=== PATIENT | female | born 1970 | race Caucasian/White ===

== ENCOUNTER 2021-10-05 13:16 | Outpatient (CLI) | payer OTHER, SELFPAY ==
[2021-10-05 13:55] LABS: Anion Gap 8 mmol/L (8-16); Blood Urea Nitrogen 14 mg/dL (7-17); Calcium 9.2 mg/dL (8.4-10.2); Carbon Dioxide 25 mmol/L (22-30); Chloride 103 mmol/L (98-107); Estimated Glomerular Filt Rate > 60; Glucose 270 mg/dL (65-110); Potassium 3.8 mmol/L (3.4-5.0); Sodium 136 mmol/L (137-145)
== END 2021-10-05 13:17 | disposition home or self-care (01) ==
LOC: ANHSURGERY 13:24
PROVIDERS: Anesthesiology; Visit Provider Obstetrics & Gynecology
DX: Z01.812 Encounter for preprocedural laboratory examination (principal); E11.9 Type 2 diabetes mellitus without complications
CPT/HCPCS: 36415; 80048

== ENCOUNTER 2021-10-11 00:36 | Day surgery (SDC) | payer OTHER, SELFPAY ==
[2021-10-03 16:19] VITALS: BMI 38.5
--- NOTE | 2021-10-03 16:49 | PC.NURSE ---
Report to the Outpatient Waiting Room, entrance under the green pavilion located off [facility], at time 1100 on date 10/11/21. OR Time: 1300. - You and your visitor will be asked a series of questions to screen for COVID 19 for your protection. - A mask is required within the hospital. - Only one visitor is allowed at this time. Patient visitors will be guided where to wait when not with patient. Preoperative COVID Testing Requirements: No COVID Test needed if: (proof is required; if not received patient will have Rapid Test prior to entry) - Patient has received COVID Vaccine at least 14 days prior to procedure date or - Patient has positive COVID test result within last 90 days of surgery date. COVID Test needed if above criteria is not met If not COVID vaccinated a COVID test must be conducted within 72 hours of surgery and patient is asked to isolate self from time of testing until procedure. You will go to the [facility] for your COVID testing. The [facility] is located at the corner of [address] [facility]. You will only be called if COVID results are positive and your surgeon may reschedule your elective surgery date. Patients may have clear liquids (water, carbonated beverages, clear teas, apple juice) until 3 hours prior to surgery with a maximum of 20 ounces. - No food from midnight until time of surgery - Infants may have breast milk until 4 hours before surgery, infant formula 6 hours prior to surgery. - Children will be allowed to drink immediately following surgery. If applicable, please bring a bottle or sippy cup to assist with drinking. Juice, water, soda, and popsicles are readily available. For infants on formula, please bring formula the day of surgery. Pacifiers are allowed. Take the following medications with a SIP of water the morning of surgery: amlodipine, citalopram Medications to discontinue per physician vitamin D3 Date to take last dose 10/08/21 Please no make-up, nail cymro, hairspray, perfume, deodorant, or body powder the day of surgery. No jewelry (including any body piercings) or valuables the day of surgery, leave them at home. Please take a shower or bath the night before, or the morning of, surgery with an antibacterial soap. Wear comfortable, loose fitting clothing. Children are encouraged to wear pajamas. - Jewelry must be removed prior to entering the operating room. Rings and piercings that are not removed may be cut off. - The hospital will not accept responsibility for valuables. - Please leave all valuables, including medications, at home the day of surgery. If you are going home after surgery, a licensed driver recruiter must drive you home. - NO public transportation without another adult. - We recommend that an adult stay with you for 24 hours following discharge. - We also recommend that you do not drive, make important decision, drink alcoholic beverages, or take any drugs that were not prescribed by your health care provider for at least 24 hours after your discharge time. For Pediatric surgeries, we recommend two adults accompany the child home (only one inside the building at this time). Follow any additional instructions given to you from your surgeon. Telephone instructions given to Luna Fitch and asked if any additional questions and then verbalized understanding. Patient advised to call surgeon office or pre surgery nurse liaison [phone] if any additional questions.
[2021-10-11 10:56] VITALS: BP 126/74; PULSE 80; RESP 16; TEMP 36.6; O2SAT 100
[2021-10-11] MEDS: ACETAMINOPHEN 500 MG TABLET 1000 MG PO (11:16)
[2021-10-11] MEDS: LACTATED RINGERS 1,000 ML 30 ML IV CONT (11:27)
--- NOTE | 2021-10-11 11:35 | P.PNAN_ITS ---
Anes - Initial Pre Proc Eval Procedure: Operation Date: 10/11/21 13:00 Proposed Procedures p Hysteroscopy, Dilation and Curettage - Lorena Avila MD Date/Time: 10/11/21 11:35 Surgeon: Lorena Avila MD Pre Op Diagnosis: menorrhaghia Patient Data Age: 50 Gender: F Height: 1.65 m Weight: 108.2 kg Last Vital Signs Temp 36.6 C 10/11/21 10:56 Pulse 80 10/11/21 10:56 Resp 16 10/11/21 10:56 BP 126/74 10/11/21 10:56 Pulse Ox 100 10/11/21 10:56 Allergies Allergy/AdvReac Type Severity Reaction Status Date / Time oxycodone [From OxyContin] AdvReac Headache Verified 10/11/21 11:12 Home Medications Medication Instructions Recorded Confirmed Type amlodipine 5 mg PO DAILY 10/03/21 10/11/21 History cholecalciferol (vitamin D3) 50 mcg PO DAILY 10/03/21 10/11/21 History citalopram 40 mg PO DAILY 10/03/21 10/11/21 History dapagliflozin [Farxiga] 10 mg PO DAILY 10/03/21 10/11/21 History dulaglutide [Trulicity] 1.5 mg SUBCUT WEEKLY 10/03/21 10/11/21 History glipizide 5 mg PO DAILY 10/03/21 10/11/21 History lisinopril-hydrochlorothiazide 25 tablet PO DAILY 10/03/21 10/11/21 History Patient hx anesthesia problems: none Family hx anesthesia problems: none Results Review: All pre-operative results and documents have been reviewed as part of the pre-operative evaluation. [facility] Past Medical History Medical History Anxiety Depression Diabetes Hypertension Social History Social History Smoking status: Never smoker Alcohol intake: current Substance use: never Living arrangements: with family Spiritual care concerns: No Anes - Eval Final PreProcedure Day of Procedure 10/11/21 11:35 Patient weight: morbidly obese Heart: regular rate and rhythm Lungs: clear to auscultation Airway: Mallampati scale class II Neurological: alert and oriented Last oral intake: >/= 8 hours ASA classification: III Emergent: no Anesthetic plan: proceed Anesthesia type and monitoring: general GIVS and standard monitoring Results Review: All pre-operative results and documents have been reviewed as part of the pre-operative evaluation. Informed Consent: The patient's anesthetic plan and its attendant risks and benefits were discussed with the patient/family/POA. Questions were solicited and answers provided to the satisfaction of the patient/family/POA.
[2021-10-11 11:36] LABS: Glucose Point of Care 129 mg/dl (65-105)
--- NOTE | 2021-10-11 12:55 | PM.IMHP ---
H&P: HPI History of Present Illness Date/Time: 10/11/21 12:55 Chief Complaint: menorrhagia and dysmeonrrhea Narrative: Luna is a 50yo with menorrhagia and dysmenorrhea, EMB in office did not have endometrial cells. Has history of endometrial ablation 2013. Also DM, obesity, CS x1 Review of Systems Review of Systems: All systems reviewed & are unremarkable except as noted in HPI and below PMFSH Past Medical History Medical History Anxiety Depression Diabetes Hypertension Social History Social History Smoking status: Never smoker Alcohol intake: current Substance use: never Living arrangements: with family Spiritual care concerns: No Meds Home Medications and Allergies Home Medications Medication Instructions Recorded Confirmed Type amlodipine 5 mg PO DAILY 10/03/21 10/11/21 History cholecalciferol (vitamin D3) 50 mcg PO DAILY 10/03/21 10/11/21 History citalopram 40 mg PO DAILY 10/03/21 10/11/21 History dapagliflozin [Farxiga] 10 mg PO DAILY 10/03/21 10/11/21 History dulaglutide [Trulicity] 1.5 mg SUBCUT WEEKLY 10/03/21 10/11/21 History glipizide 5 mg PO DAILY 10/03/21 10/11/21 History lisinopril-hydrochlorothiazide 25 tablet PO DAILY 10/03/21 10/11/21 History Allergies Allergy/AdvReac Type Severity Reaction Status Date / Time oxycodone [From OxyContin] AdvReac Headache Verified 10/11/21 11:12 Vital Signs Vital Signs - 24 hr 10/11/21 10:56 Temperature 97.8 F Pulse Rate 80 Respiratory Rate 16 Blood Pressure 126/74 Pulse Oximetry 100 Exam Const: General: no acute distress Resp: Effort & Inspection: normal respiratory effort Auscultation: clear to auscultation bilaterally Cardio: Rate: regular rate Rhythm: regular rhythm GI: GI Palp: Yes Soft to palpation Extrem: General: normal to inspection Assessment and Plan Assessment and plan (1) Menorrhagia: Code(s): N92.0 - Excessive and frequent menstruation with regular cycle Status: Acute Additional Plan Will proceed [facility] D and C for menorrhagia, no endometrial cells on EMB in office. If benign, plan is OPC to control her sx. Previosuly consented, questions answered, will proceed.
--- NOTE | 2021-10-11 12:57 | WPDHPUPDATE1 ---
History and Physical Update Update Date/Time: 10/11/21 12:57 History and Physical has been reviewed, including an updated exam of the patient. There are NO changes in the patient's condition. Risks, benefits, and alternatives have been discussed and questions answered. Patient agrees to proceed with procedure.
[2021-10-11] MEDS: BUPIVACAINE HCL 0.25% PF 30 ML VIAL INFILTRATE (13:45)
--- NOTE | 2021-10-11 13:57 | P.OP_ITS ---
Procedure Note - Detailed Date of Procedure 10/11/21 Pre-op Diagnosis menorrhaghia Post-op Diagnosis same Procedure Performed Hysteroscopy and dilation and curettage Surgeon Lorena Avila MD Banking Analyst none Anesthesia MAC Findings normal uterine cavity with possible polyp in posterior lower uterine segment Description of Procedure The patient was taken to the OR and placed in dorthal lithotomy in [facility]. She received MAC anesthesia. A speculum was placed and the cervix grasped with a single tooth tenaculum. 10cc of 0.25% marcaine without epinephrine was instilled in a paracervical block. The cervix was sequentially dilated to accommodate a 5mm hysteroscope. The hysteroscope was inserted and the uterine cavity was visualized with the findings noted above. The hysteroscope was removed and a sharp curettage was performed, obtaining endometrial curettings to send to pathology. The tenaculum was removed and the cervix was made hemostatic with Monsel's solution and pressure. The speculum was removed. The patient tolerated the procedure well. Estimated Blood Loss 20 Drains No Packing No Pathology yes Complications No immediate complications Condition stable Disposition same day
[2021-10-11 13:59] VITALS: BP 123/66; PULSE 79; RESP 12; O2SAT 96
[2021-10-11 14:06] LABS: Glucose Point of Care 100 mg/dl (65-105)
[2021-10-11 14:25] VITALS: BP 134/73; PULSE 68; RESP 12
[2021-10-11 14:55] VITALS: BP 126/76; PULSE 69; RESP 12
== END 2021-10-11 15:03 | disposition home or self-care (01) ==
PROVIDERS: Visit Provider Obstetrics & Gynecology
PROC: 0U5B8ZZ Destruction of Endometrium, Via Natural or Artificial Opening Endoscopic (ICD-10-PCS; CPT 58563; principal; 2021-10-11 13:00)
DX: N92.0 Excessive and frequent menstruation with regular cycle (principal); N94.6 Dysmenorrhea, unspecified; I10 Essential (primary) hypertension; E11.9 Type 2 diabetes mellitus without complications; F41.8 Other specified anxiety disorders; Z79.84 Long term (current) use of oral hypoglycemic drugs; E66.01 Morbid (severe) obesity due to excess calories; Z68.39 Body mass index [BMI] 39.0-39.9, adult
CPT/HCPCS: 58558; 36415; 80048; 82948; 88305; A9270; J2250; J2405; J2704; J3010; J7030; J7120

== ENCOUNTER 2022-10-30 11:46 | Emergency (ER) | payer OTHER, BC, SELFPAY ==
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
[2022-10-30 12:10] VITALS: BP 121/78; PULSE 94; RESP 16; TEMP 36.1; O2SAT 100
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
[2022-10-30] MEDS: ACETAMINOPHEN/CODEINE (*CRX) 300/30 MG TABLET 1 TAB PO (14:19)
[2022-10-30] MEDS: CYCLOBENZAPRINE HCL 10 MG TABLET PO (14:19)
[2022-10-30] MEDS: KETOROLAC 30 MG/ML VIAL (*BKC) IM (14:19)
== END 2022-10-30 14:26 | disposition home or self-care (01) ==
PROVIDERS: Emergency Provider Emergency Medicine
DX: R07.89 Other chest pain (principal); E11.9 Type 2 diabetes mellitus without complications; I10 Essential (primary) hypertension; Z79.84 Long term (current) use of oral hypoglycemic drugs; Z79.85 Long-term (current) use of injectable non-insulin antidiabetic drugs; V49.40XA Driver injured in collision with unspecified motor vehicles in traffic accident, initial encounter
CPT/HCPCS: 71046; 96372; 99283; A9270; J1885

== ENCOUNTER 2024-08-04 09:01 | Outpatient (CLI) | payer BC, SELFPAY ==
--- NOTE | ~2024-08-04 | XR_ITS ---
3 VIEWS LUMBAR SPINE Ordering provider: Sho Pelaez History: . Segmental and somatic dysfunction of lumbar region . Comparison: None. FINDINGS: VERTEBRAL BODIES: No visible fracture or subluxation. Slightly anterior loss of height of T12 most li mj chronic. DISK SPACES: Normal. Facet joint disease at the level of L4-L5 and L5-S1. SOFT TISSUES: Normal. IMPRESSION: No acute osseous abnormality lumbar spine. Reviewed, dictated and finalized at location A.
--- NOTE | ~2024-08-04 | XR_ITS ---
[id number] Ordering provider: Sho Pelaez History: . Segmental and somatic dysfunction of cervical region,segment . Comparison: None. FINDINGS: VERTEBRAL BODIES: Normal height and alignment. No visible fracture or subluxation. The dens is intact . DISK SPACES: Narrowing of the disc C5-C6 and C6-C7 PARASPINOUS SOFT TISSUES: No prevertebral soft tissue swelling. IMPRESSION: No acute osseous abnormality cervical spine. Reviewed, dictated and finalized at location A.
== END 2024-08-04 09:02 | disposition home or self-care (01) ==
PROVIDERS: PCP Nurse Practitioner
DX: M99.01 Segmental and somatic dysfunction of cervical region (principal); M99.03 Segmental and somatic dysfunction of lumbar region; M54.41 Lumbago with sciatica, right side
CPT/HCPCS: 72040; 72100